=== PATIENT | female | born 1960 | race Two or more races ===

== ENCOUNTER 2023-12-11 14:16 | Emergency (ER) | payer BC ==
[~2023-12-11] VITALS: Ht 149.9 cm; Wt 86.0 kg
[2023-12-11 14:30] VITALS: BP 172/108; TEMP 97.9
[2023-12-11 16:18] VITALS: PULSE 88; RESP 18; O2SAT 97
[2023-12-11] MEDS ORDERED: MELO7.5T7 PO (17:07)
== END 2023-12-11 17:23 | disposition home or self-care (01) ==
LOC: ER 14:16
DX: M25.761 Osteophyte, right knee (principal); J44.9 Chronic obstructive pulmonary disease, unspecified; F17.210 Nicotine dependence, cigarettes, uncomplicated; Z79.899 Other long term (current) drug therapy
CPT/HCPCS: 73562